=== PATIENT | male | born 1995 | race Caucasian/White ===

== ENCOUNTER 2016-05-15 11:41 | Emergency (ER) | payer OTHER, BC ==
[~2016-05-15] VITALS: Ht 185.4 cm; Wt 88.2 kg
[~2016-05-15 11:41] MED LIST: NO HOME MEDICATIONS
[2016-05-15 11:48] VITALS: BP 166/94; PULSE 71; TEMP 98.3
== END 2016-05-15 14:44 | disposition home or self-care (01) ==
LOC: COL.ER 11:41
DX: S63.501A Unspecified sprain of right wrist, initial encounter (principal); S50.312A Abrasion of left elbow, initial encounter; V28.4XXA Motorcycle driver injured in noncollision transport accident in traffic accident, initial encounter; Y92.410 Unspecified street and highway as the place of occurrence of the external cause